=== PATIENT | female | born 1975 | race Caucasian/White ===

== ENCOUNTER 2017-03-31 13:45 | Emergency (ER) | payer BC ==
[2017-03-31 14:42] VITALS: BP 148/100
--- NOTE | 2017-03-31 15:30 | RAD ---
Indication: Left ring finger injury. 4 views of left ring finger demonstrates no fracture. No other bone or joint abnormalities identified. IMPRESSION: No fracture of left ring finger.
--- NOTE | 2017-03-31 15:47 | UC ---
Hand/Wrist HPI - HPI Summary HPI Summary: Pt reports that she dropped a filled with soil on his left 4th finger. Pt has peripheral neuropathy and c/o swelling and throbbing pain - History Of Current Complaint Chief Complaint: UCUpperExtremity Stated Complaint: LEFT RING FINGER INJURY Time Seen by Provider: 03/31/17 14:49 Hx Obtained From: Patient ?: No Onset/Duration: Sudden Onset Severity Initially: Moderate Severity Currently: Moderate Character Of Pain: Dull, Aching, Throbbing, Stiffness Aggravating Factor(s): Movement Alleviating: Rest Associated Signs And Symptoms: Positive: Swelling Related History: Dominant Hand Right, Dominant Hand Left - Risk Factors Compartment Syndrome Risk Factors: Pain - Allergies/Home Medications Allergies/Adverse Reactions: Allergies Allergy/AdvReac Type Severity Reaction Status Date / Time Codeine Allergy Hives, Verified 03/31/17 14:43 pass out Penicillins Allergy Hives Verified 03/31/17 14:43 Sulfa Drugs Allergy Anaphylatic Verified 03/31/17 14:43 Shock PMH/Surg Hx/FS Hx/Imm Hx Previously Healthy: Yes Cancer History: Breast Cancer - Surgical History Surgical History: Yes Surgery Procedure, Year, and Place: HYSTERECTOMY. TONSILECTOMY. JAW. LEFT ARM. GALLBLADDER. BILATERAL MASTECTOMY - Family History Known Family History: Positive: Cardiac Disease - Social History Occupation: Employed Full-time Lives: With Family Alcohol Use: Rare Substance Use Type: Marijuana Smoking Status (MU): Never Smoked Tobacco Have You Smoked in the Last Year: No Review of Systems Constitutional: Negative Skin: Bruising - left 4th finger Eyes: Negative ENT: Negative Respiratory: Negative Cardiovascular: Negative Gastrointestinal: Negative Genitourinary: Negative Motor: Decreased ROM - left 4th finger secondary to pain Neurovascular: Negative Musculoskeletal: Arthralgia - left 4th finger, Myalgia Neurological: Negative Psychological: Negative Is Patient Immunocompromised?: No All Other Systems Reviewed And Are Negative: Yes Physical Exam Triage Information Reviewed: Yes Appearance: Well-Appearing Vital Signs: Initial Vital Signs Temp 97.1 F 03/31/17 14:40 Pulse 68 03/31/17 14:40 Resp 14 03/31/17 14:40 BP 148/100 03/31/17 14:40 Pulse Ox 100 03/31/17 14:40 Vital Signs Reviewed: Yes Eye Exam: Normal ENT Exam: Normal Neck exam: Normal Respiratory Exam: Normal Cardiovascular Exam: Normal Musculoskeletal Exam: Other Musculoskeletal: Positive: ROM Limited @ - left 4th finger secondary to pain, Edema @ - left 4th finger Neurological Exam: Other Neurological: Positive: Other: - preexisting peripheral neuropathy Psychological Exam: Normal Skin Exam: Normal Hand/Wrist Course/Dx - Course Course Of Treatment: Indication: Left ring finger injury. 4 views of left ring finger demonstrates no fracture. No other bone or joint abnormalities. identified. IMPRESSION: No fracture of left ring finger. - Differential Dx/Diagnosis Differential Diagnosis/HQI/PQRI: Contusion, Fracture Provider Diagnoses: left 4th finger contusion, crush injury Discharge - Discharge Plan Condition: Stable Disposition: HOME Patient Education Materials: Crush Injury (ED) Referrals: William Thompson MD [Medical Doctor] - Priscila Hernandez MD [Primary Care Provider] - If Needed Additional Instructions: Please follow up with your PCP or return to clinic. We have provided a referral to an orthopedic provider to follow up with as needed. Indication: Left ring finger injury. 4 views of left ring finger demonstrates no fracture. No other bone or joint abnormalities identified.
== END 2017-03-31 15:44 | disposition home or self-care (01) ==
LOC: UCCORT 13:45
DX: S60.042A Contusion of left ring finger without damage to nail, initial encounter (principal); G62.9 Polyneuropathy, unspecified; F12.90 Cannabis use, unspecified, uncomplicated; W20.8XXA Other cause of strike by thrown, projected or falling object, initial encounter; Z88.5 Allergy status to narcotic agent; Z88.0 Allergy status to penicillin; Z88.2 Allergy status to sulfonamides
CPT/HCPCS: 73140; 99211; G0463

== ENCOUNTER 2019-09-24 07:41 | Emergency (ER) | payer BC ==
--- OUTSIDE RECORDS SUMMARY | 2019-09-24 07:52 | XMS REPORT | Continuity of Care Document ---
:1975 External Reference #:[id number] Author Name Melvin Garner MD Address [address] [place] [address] Care Team Providers Name Role Phone Esdras Raygoza MD - Ophthalmic Care Team Information Under Water Assistant Melvin Garner MD - Internal Care Team Information Under Water Assistant Medicine Problems Active Problems Provider Date Chronic cholecystitis Earl Perez MD Onset: 02/02/2014 Fracture Mandible Body Closed Other & Aidan Sandoval, Onset: 02/18 Unspecified Gwyn Temporomandibular joint disorder Aidan Sandoval, Onset: 02/26/2014 Gwyn Malignant neoplasm of female breast Jennifer Prescott DO Onset: 03/02/2015 Generalized anxiety disorder Jennifer Prescott DO Onset: 04/27/2015 Female stress incontinence Bee Moseley M.D. Onset: 05/24/2017 Constipation Priscila Hernandez MD Onset: 09/12/2017 Hyperlipidemia Priscila Hernandez MD Onset: 09/12/2017 Joint pain Priscila Hernandez MD Onset: 09/12/2017 Arthralgia of the upper arm Waldo Boone M.D. Onset: 11/27/2017 Difficulty breathing Waldo Boone M.D. Onset: 11/27/2017 Eustachian tube salpingitis Waldo Boone M.D. Onset: 11/27/2017 Social History Type Date Description Comments Sex Unknown Tobacco Use Start: Unknown Never Smoked Cigarettes ETOH Use Denies alcohol use Recreational Drug Use Formerly used Marijuana sporadically Tobacco Use Start: Unknown End: Patient is a former smoker Smoking Status Reviewed: 09/16/19 Patient is a former smoker Allergies, Adverse Reactions, Alerts Active Allergies Reaction Severity Comments Date Codeine Upset Stomach 09/02/2009 Penicillin 09/02/2009 Sulfa Drugs 09/22/2013 Morphine Rash (Unsure) 05/18/2015 Gabapentin extreme fatigue. 04/29/2018 Medications Active Medications SIG Qnty Indications Ordering Date Provider Ergocalciferol take one a week 12caps E55.9 Priscila Hernandez, 11/04/2018 [id number] MD Capsules Custom Breast The above Patient 1units Gagen, 04/29/2018 Prosthetics will need custom MS Kelly, bilateral breast ZANJERO-C, CNM prosthetics Cymbalta 2 caps at bedtime Unknown 30mg Caps DR Lesly Ramirez 1 by mouth every Unknown 3mg Tablets day History Medications Cymbalta 1 po bid 180caps F41.1 Priscila Hernandez MD 03/28/2019 - 09/16/[address] Grace Medications Administered in Office Medication SIG Qnty Indications Ordering Provider Date Betamethasone Acetate & Renee Rojo, [facility] 12/06/2017 Sodium Phosphate 3 MG Of Each Injection Betamethasone Acetate & Renee Rojo, [facility] 12/06/2017 Sodium Phosphate 3 MG Of Each Injection Depomedrol 40mg/1cc Renee Rojo, [facility] 09/22/2013 (methylprednisolone acetate) Injection Immunizations CPT Code Status Date Vaccine Lot # [id number] Given 12/20/2016 Pneumovax Injection [id number] Given 12/20/2016 Tdap injection [id number] Vital Signs Date Vital Result Comment 09/16/2019 2:41pm BP Systolic 148 mmHg BP Diastolic 92 mmHg Body Temperature 97.0 F Heart Rate 58 /min Respiratory Rate 16 /min Height 62.5 inches 5'2.50" Weight 193.00 lb BMI (Body Mass Index) 34.7 kg/m2 BSA (Body Surface Area) 1.89 m2 [place] body weight in kilograms 51 kg O2 % BldC Oximetry 100 % 03/28/2019 8:18am BP Systolic Sitting Left Arm 122 mmHg BP Diastolic Sitting Left Arm 74 mmHg Body Temperature 97.6 F Heart Rate 70 /min Respiratory Rate 18 /min Weight 177.00 lb O2 % BldC Oximetry 99 % Results Description No Information Available Procedures Date Code Description Status 01/15/2018 [id number] Colonoscopy Completed 07/16/2016 [id number] Bone Mineral Density Test Completed 02/24/2015 [id number] Mammogram Completed 10/30/2013 [id number] Mammogram Completed 05/12/2013 [id number] Mammogram Completed Medical Devices Description No Information Available Encounters Type Date Location Provider Dx Diagnosis Office Visit 09/16/2019 [facility], C50.919 Malignant neoplasm 3:00p [facility] female breast F32.9 Major depressive disorder, single episode, unspecified M15.9 Polyosteoarthritis, unspecified K58.1 Irritable bowel syndrome with constipation Z68.34 Body mass index (BMI) 34.0-34.9, adult Office Visit 03/28/2019 8:30a [facility] K59.00 Constipation, Office HARVEY Huang unspecified F41.1 Generalized anxiety disorder M54.12 Radiculopathy, cervical region Assessments Date Code Description Provider 09/16/2019 C50.919 Malignant neoplasm of unspecified site Melvin Garner MD of unspecified female 09/16/2019 F32.9 Major depressive disorder, single Melvin Garner MD episode, unspecified 09/16/2019 M15.9 Polyosteoarthritis, unspecified Melvin Garner MD 09/16/2019 K58.1 Irritable bowel syndrome with Melvin Garner MD constipation 09/16/2019 Z68.34 Body mass index (BMI) 34.0-34.9, adult Melvin Garner MD 03/28/2019 K59.00 Constipation, unspecified Geeta Lewis PA 03/28/2019 F41.1 Generalized anxiety disorder Geeta Lewis PA 03/28/2019 M54.12 Radiculopathy, cervical region Geeta Lewis PA Plan of Treatment Future Appointment(s):09/18/2019 8:15 am - Maintenance Worker Municipal at [facility] Ucgutt0110/14 3:00 pm - Melvin Garner MD at [facility] Vhrmrd5109/16/2019 - Melvin Garner, MDC50.919 Malignant neoplasm of unspecified site of unspecified femaleNew Labs:Comprehensive Metabolic Panel, Scheduled: CBC W/Automated Diff, Scheduled: 09/18/19New Orders:ECHO Limited, Ordered: 10/02F32.9 Major depressive disorder, single episode, unspecifiedNew Labs: Vitamin D,25-Hydroxy, Scheduled: 09/18/19M15.9 Polyosteoarthritis, unspecifiedReferral:Earl Garcia MD, WdshuqtuqshsQ39.1 Irritable bowel syndrome with muhysnudvczmS39.34 Body mass index (BMI) 34.0-34.9, adultNew Labs: LDL Cholesterol Profile, Scheduled: 09/18/19Glycohemoglobin A1c, Scheduled: 12/02TSH Reflex FT4 And/Or FT3, Scheduled: 09/18/19AllFollow up:ECHO labs prior to visit f/u 4 weeks Functional Status Description No Information Available Mental Status Description No Information Available Referrals Refer to Dr Reason for Referral Status Appt Date Earl Garcia MD hx of breast cancer follows with allie Created , complaining of multiple joint pain, muscle pain, saw an shellacker as well, has keratoconjunctivitis, possible fibromyalgia vs. sicca syndrome vs mixed connective tissue disease, please evaluate thanks. [address] [place] [address] [place] [address] [phone]
--- OUTSIDE RECORDS SUMMARY | 2019-09-24 07:52 | XMS REPORT | Continuity of Care Document ---
:1975 External Reference #:[id number] Author Name Priscila Hernandez MD (transmitted by agent of provider Melvin Garner ) Address [address] [place] [address] Care Team Providers Name Role Phone Priscila Hernandez MD - Internal Medicine Care Team Information Silver Miner [phone] Esdras Raygoza MD - Ophthalmic Care Team Information Silver Miner Problems Active Problems Provider Date Chronic cholecystitis [...] is a former smoker Smoking Status Reviewed: 03/28/19 Patient is a former smoker Allergies, Adverse Reactions, Alerts Active Allergies Reaction Severity Comments Date Codeine Upset Stomach 09/02/2009 Penicillin 09/02/2009 Sulfa Drugs 09/22/2013 Morphine Rash (Unsure) 05/18/2015 Gabapentin extreme fatigue. 04/29/2018 Medications Active Medications SIG Qnty Indications Ordering Date Provider Cymbalta 1 po bid 180caps F41.1 David, Priscila, 03/28/[address] KENDRICK Part Ergocalciferol take one a week 12caps E55.9 David, Priscila, 11/04/2018 [id number] Capsules Gas Relief Take one every 8 90units R14.0 David, Priscila, 11/04/2018 80mg hours as needed Chewtabs for flautus Custom Breast The above Patient 1units Gagen, 04/29/2018 Prosthetics will need custom Kelly, MS, bilateral breast PRODUCTION SUPERVISOR TRAINEE-C, CNM prosthetics Alpha Lipoic Acid 1 caps by mouth Unknown Extra Strength every day 600mg Capsules Linzess 1 po daily K59.00 Unknown 145mcg Capsules Medications Administered in Office Medication SIG Qnty Indications Ordering Provider Date Betamethasone Acetate & Reene Rojo [facility] 12/06/2017 Sodium Phosphate 3 MG Of Each Injection Betamethasone Acetate & Renee Rojo, [facility] 12/06/2017 Sodium Phosphate 3 MG Of Each Injection Depomedrol 40mg/1cc Renee Rojo, [facility] 09/22/2013 (methylprednisolone acetate) Injection Immunizations CPT Code Status Date Vaccine Lot # [id number] Given 12/20/2016 Pneumovax Injection [id number] Given 12/20/2016 Tdap injection [id number] Vital Signs Date Vital Result Comment 03/28/2019 8:18am BP Systolic Sitting Left Arm 122 mmHg BP Diastolic Sitting Left Arm 74 mmHg Body Temperature 97.6 F Heart Rate 70 /min Respiratory Rate 18 /min Weight 177.00 lb O2 % BldC Oximetry 99 % 12/02/2018 11:17am BP Systolic Sitting Right Arm 92 mmHg BP Diastolic Sitting Right Arm 60 mmHg Body Temperature 98.2 F Heart Rate 65 /min Respiratory Rate 18 /min Height 62.5 inches 5'2.50" Weight 182.00 lb BMI (Body Mass Index) 32.8 kg/m2 BSA (Body Surface Area) 1.85 m2 [place] body weight in kilograms 51 kg O2 % BldC Oximetry 97 % ra Results Description No Information Available Procedures Date Code Description Status 01/15/2018 [id number] Colonoscopy Completed 07/16/2016 [id number] Bone Mineral Density Test Completed 02/24/2015 [id number] Mammogram Completed 10/30/2013 [id number] Mammogram Completed 05/12/2013 [id number] Mammogram Completed Medical Devices Description No Information Available Encounters Type Date Location Provider Dx Diagnosis Office Visit 03/28/2019 [facility] K59.00 Constipation, 8:30a Office HARVEY Huang unspecified F41.1 Generalized anxiety disorder M54.12 Radiculopathy, cervical region Assessments Date Code Description Provider 09/16/2019 C50.919 Malignant neoplasm of unspecified site Melvin Garner MD of unspecified female 03/28/2019 K59.00 Constipation, unspecified Geeta Lewis PA 03/28/2019 F41.1 Generalized anxiety disorder Geeta Lewis PA 03/28/2019 M54.12 Radiculopathy, cervical region Geeta Lewis PA Plan of Treatment 09/16/2019 - Melvin Garner MDC50.919 Malignant neoplasm of unspecified site of unspecified femaleAllFollow up:f/u with tika stephens in 6 months Functional Status Description No Information Available Mental Status Description No Information Available Referrals Description No Information Available
--- OUTSIDE RECORDS SUMMARY | 2019-09-24 07:52 | XMS REPORT | Continuity of Care Document ---
:1975 External Reference #:[id number] Author Name Hydrometallurgical Engineer (transmitted by agent of provider Soniya Aggarwal) Address [address] [place] [address] Care Team Providers Name Role Phone Esdras Raygoza MD - Ophthalmic Care Team Information Litigation Services Manager Melvin Garner MD - Internal Care Team Information Litigation Services Manager [phone] Medicine Earl Garcia MD - Rheumatology Care Team Information Litigation Services Manager Problems Active Problems Provider Date Chronic cholecystitis [...] a week 12caps E55.9 Priscila Hernandez, 11/04/2018 [id number] MD Capsules Custom Breast The above Patient 1units Gagen, 04/29/2018 Prosthetics will need custom Kelly, MS, bilateral breast GRAVEL WHEELER-C, CNM prosthetics Cymbalta 2 caps at bedtime Unknown 30mg Caps DR Grace Trulance 1 by mouth every Unknown 3mg Tablets day History Medications Cymbalta 1 po bid 180caps F41.1 Priscila Hernandez MD 03/28/2019 - 09/16/[address] Grace Medications Administered in Office Medication SIG Qnty Indications Ordering Provider Date [facility] 12/06/2017 Sodium Phosphate 3 MG Of Each Injection Betamethasone Acetate & Renee Rojo, [facility] 12/06/2017 Sodium Phosphate 3 MG Of Each Injection Depomedrol 40mg/1cc Renee Rojo, [facility] 09/22/2013 (methylprednisolone acetate) Injection Immunizations CPT Code Status Date Vaccine Lot # [id number] Given 12/20/2016 Pneumovax Injection [id number] Given 12/20/2016 Tdap injection [id number] Vital Signs Date Vital Result Comment 09/16/2019 2:41pm BP Systolic 148 mmHg BP Diastolic 92 mmHg Body Temperature 97.0 F Heart Rate 58 /min Respiratory Rate 16 /min Height 62.5 inches 5'2.50" Weight 193.00 lb BMI (Body Mass Index) 34.7 kg/m2 BSA (Body Surface Area) 1.89 m2 [place] body weight in kilograms 51 kg O2 % BldC Oximetry 100 % 03/28/2019 8:18am BP Systolic Sitting Left Arm 122 mmHg BP Diastolic Sitting Left Arm 74 mmHg Body Temperature 97.6 F Heart Rate 70 /min Respiratory Rate 18 /min Weight 177.00 lb O2 % BldC Oximetry 99 % Results Test Acquired Date Facility Test Result H/L Range Note Laboratory test 09/18/2019 [facility] Glycohemoglobin A1c <pending> finding [address] [place] [address] [phone] Vitamin D,25-Hydroxy <pending> TSH Reflex FT4 And/Or FT3 <pending> Procedures Date Code Description Status 01/15/2018 [id number] Colonoscopy Completed 07/16/2016 [id number] Bone Mineral Density Test Completed 02/24/2015 [id number] Mammogram Completed 10/30/2013 [id number] Mammogram Completed 05/12/2013 [id number] Mammogram Completed Medical Devices Description No Information Available Encounters Type Date Location Provider Dx Diagnosis Office Visit 09/16/2019 [facility], C50.919 Malignant neoplasm 3:00p Office MD Melvin of [facility] site of unspecified female breast F32.9 Major depressive disorder, single episode, unspecified M15.9 Polyosteoarthritis, unspecified K58.1 Irritable bowel syndrome with constipation Z68.34 Body mass index (BMI) 34.0-34.9, adult Office Visit 03/28/2019 8:30a [facility], K59.00 Constipation, Office HARVEY Huang unspecified F41.1 Generalized anxiety disorder M54.12 Radiculopathy, cervical region Assessments Date Code Description Provider 09/16/2019 C50.919 Malignant neoplasm of unspecified site Melvin Garner MD of unspecified female 09/16/2019 F32.9 Major depressive disorder, single Melvin Garenr MD episode, unspecified 09/16/2019 M15.9 Polyosteoarthritis, unspecified Melvin Garner MD 09/16/2019 K58.1 Irritable bowel syndrome with Melvin Garner MD constipation 09/16/2019 Z68.34 Body mass index (BMI) 34.0-34.9, adult Melvin Garner MD 03/28/2019 K59.00 Constipation, unspecified Geeta Lewis PA 03/28/2019 F41.1 Generalized anxiety disorder Geeta Lewis PA 03/28/2019 M54.12 Radiculopathy, cervical region Geeta Lewis PA Plan of Treatment Future Appointment(s):10/15/2019 3:00 pm - Melvin Garner MD at Primary Care Xghofe1909/16/2019 - Melvin Garner, MDC50.919 Malignant neoplasm of unspecified site of unspecified ougebnF13.9 Major depressive disorder, single episode, doiqknsywzzT08.9 Polyosteoarthritis, unspecifiedReferral:Earl Garcia MD, JerlcssmmtdpY74.1 Irritable bowel syndrome with gafdqmehmrqtN47.34 Body mass index (BMI) 34.0-34.9, adultAllFollow up:ECHO labs prior to visit f/u 4 weeks Functional Status Description No Information Available Mental Status Description No Information Available Referrals Refer to Dr Reason for Referral Status Appt Date Earl Garcia MD hx of breast cancer follows with allie Created , complaining of multiple joint pain, muscle pain, saw an munitions factory worker as well, has keratoconjunctivitis, possible fibromyalgia vs. sicca syndrome vs mixed connective tissue disease, please evaluate thanks. Faxed records 09/17/[address] [place] [address] [place] [address] [phone]
--- OUTSIDE RECORDS SUMMARY | 2019-09-24 07:52 | XMS REPORT | Continuity of Care Document ---
:1975 External Reference #:[id number] Author Name Melvin Garner MD (transmitted by agent of provider Kenya Partida) Address [address] [place] [address] Care Team Providers Name Role Phone Esdras Raygoza MD - Ophthalmic Care Team Information Lead Clinical Research Coordinator Melvin Garner MD - Internal Care Team Information Lead Clinical Research Coordinator [phone] Medicine Problems Active Problems Provider Date Chronic cholecystitis Earl Perez MD Onset: 02/02/2014 Fracture Mandible Body Closed Other & Aidan Sandoval, Onset: 02/18 Unspecified Gwyn Temporomandibular joint disorder Aidan Sandoval, Onset: 02/26/2014 Gwyn Malignant neoplasm of female breast Jennifre Prescott DO Onset: 03/02/2015 Generalized anxiety disorder [...] a week 12caps E55.9 Priscila Hernandez, 11/04/2018 [id number] MD Capsules Custom Breast The above Patient 1unole Ledezma, 04/29/2018 Prosthetics will need custom Kelly, MS, bilateral breast HEEL ATTACHER-C, CNM prosthetics Cymbalta 2 caps at bedtime Unknown 30mg Caps DR Lesly Frairencvick 1 by mouth every Unknown 3mg Tablets day History Medications Cymbalta 1 po bid 180caps F41.1 Priscila Hernandez MD 03/28/2019 - 09/16/[address] Grace Medications Administered in Office Medication SIG Qnty Indications Ordering Provider Date Betamethasone Acetate & Renee Rojo [facility] 12/06/2017 Sodium Phosphate 3 MG Of Each Injection Betamethasone Acetate & Renee Rojo, [facility] 12/06/2017 Sodium Phosphate 3 MG Of Each Injection Depomedrol 40mg/1cc Renee Rojo, [facility] 09/22/2013 (methylprednisolone acetate) Injection Immunizations CPT Code Status Date Vaccine Lot # [id number] Given 12/20/2016 Pneumovax Injection [id number] Given 12/20/2016 Tdap injection [id number] Vital Signs Date Vital Result Comment 09/16/2019 2:41pm BP Systolic 148 mmHg BP Diastolic 92 mmHg Body Temperature 97.0 F Heart Rate 58 /min Respiratory Rate 16 /min Height 62.5 inches 5'2.50" Weight 193.00 lb BMI (Body Mass Index) 34.7 kg/m2 BSA (Body Surface Area) 1.89 m2 [place] body weight in kilograms 51 kg O2 % BldC Oximetry 100 % 03/28/2019 8:18am BP Systolic Sitting Left Arm 122 mmHg BP Diastolic Sitting Left Arm 74 mmHg Body Temperature 97.6 F Heart Rate 70 /min Respiratory Rate 18 /min Weight 177.00 lb O2 % BldC Oximetry 99 % Results Description No Information Available Procedures Date Code Description Status 01/15/2018 [id number] Colonoscopy Completed 07/16/2016 [id number] Bone Mineral Density Test Completed 02/24/2015 [id number] Mammogram Completed 10/30/2013 [id number] Mammogram Completed 05/12/2013 [id number] Mammogram Completed Medical Devices Description No Information Available Encounters Type Date Location Provider Dx Diagnosis Office Visit 09/16/2019 [facility] C50.919 Malignant neoplasm 3:00p Office MD Melvin of unsp site of unspecified female breast F32.9 Major depressive disorder, single episode, unspecified M15.9 Polyosteoarthritis, unspecified K58.1 Irritable bowel syndrome with constipation Z68.34 Body mass index (BMI) 34.0-34.9, adult Office Visit 03/28/2019 8:30a [facility] K59.00 Constipation, Office Geeta Pope PA unspecified F41.1 Generalized anxiety disorder M54.12 Radiculopathy, [...] Lewis PA 03/28/2019 M54.12 Radiculopathy, cervical region Comp[place] Geeta H., PA Plan of Treatment Future Appointment(s):09/18/2019 8:15 am - Agricultural Real Estate Agent at Primary Care Mgaeno3610/14 3:00 pm - Melvin Garner MD at Primary Care Epawkh6709/16/2019 - Melvin Garner, MDC50.919 Malignant neoplasm of unspecified site of unspecified femaleNew Labs:Comprehensive Metabolic Panel, Scheduled: CBC W/Automated Diff, Scheduled: 09/18/19New Orders:ECHO Limited, Ordered: 10/02F32.9 Major depressive disorder, single episode, unspecifiedNew Labs: Vitamin D,25-Hydroxy, Scheduled: 09/18/19M15.9 Polyosteoarthritis, unspecifiedReferral:Earl Garcia MD, LxykeotmmiqzM68.1 Irritable bowel syndrome with mrirjcvylsqqD01.34 Body mass index (BMI) 34.0-34.9, adultNew Labs: LDL Cholesterol Profile, Scheduled: 09/18/19Glycohemoglobin A1c, Scheduled: 12/02TSH Reflex FT4 And/Or FT3, Scheduled: 09/18/19AllFollow up:ECHO labs prior to visit f/u 4 weeks Functional Status Description No Information Available Mental Status Description No Information Available Referrals Refer to Reason for Referral Status Appt Date Earl Garcia MD hx of breast cancer follows with yunieruga Created / 0000 , complaining of multiple joint pain, muscle pain, saw an dental technology advisor as well, has keratoconjunctivitis, possible fibromyalgia vs. sicca syndrome vs mixed connective tissue disease, please evaluate thanks. [address] [facility] [place] [address] [place] [address] [phone]
--- OUTSIDE RECORDS SUMMARY | 2019-09-24 07:52 | XMS REPORT | Continuity of Care Document ---
:1975 External Reference #:[id number] Author Name Bar Steward (transmitted by agent of provider Kenya Partida) Address [address] [place] [address] Care Team Providers Name Role Phone Esdras Raygoza MD - Ophthalmic Care Team Information [employer] Manager Melvin Garner MD - Internal Care Team Information [employer] Manager Medicine Earl Garcia MD - Rheumatology Care Team Information [employer] Manager Problems Active Problems Provider Date Chronic [...] a week 12caps E55.9 Priscila Hernandez, 11/04/2018 [id number] MD Capsules Custom Breast The above Patient 1units Gagjere, 04/29/2018 Prosthetics will need custom [place], [place], bilateral breast [employer], CNM prosthetics Cymbalta 2 caps at bedtime Unknown 30mg Caps DR Grace Trjoannce 1 by mouth every Unknown 3mg Tablets day History Medications Cymbalta 1 po bid 180caps F41.1 Priscila Hernandez MD 03/28/2019 - 09/16/[address] Grace Medications Administered in Office Medication SIG Qnty Indications Ordering Provider Date Bet[facility]2017 Sodium Phosphate 3 MG Of Each Injection Betamethasone Acetate & Renee Rojo, [facility] 12/06/2017 Sodium Phosphate 3 MG Of Each Injection Depomedrol 40mg/1cc Renee Rojo, [facility] 09/22/2013 (methylprednisolone acetate) Injection Immunizations CPT Code Status Date Vaccine Lot # [id number] Given 12/20/2016 Pneumovax Injection [id number] Given 12/20/2016 Tdap injection [id number] Vital Signs Date Vital Result Comment 09/16/2019 2:41pm BP Systolic 148 mmHg BP Diastolic 92 mmHg Body Temperature 97.0 F Heart Rate 58 /min Respiratory Rate 16 /min Height 62.5 inches 5'2.50" Weight 193.00 lb BMI (Body Mass Index) 34.7 kg/m2 BSA (Body Surface Area) 1.89 m2 Superior body weight in kilograms 51 kg O2 % BldC Oximetry 100 % 03/28/2019 8:18am BP Systolic Sitting Left Arm 122 mmHg BP Diastolic Sitting Left Arm 74 mmHg Body Temperature 97.6 F Heart Rate 70 /min Respiratory Rate 18 /min Weight 177.00 lb O2 % BldC Oximetry 99 % Results Test Acquired Date Facility Test Result H/L Range Note Comprehensive 09/18/2019 [facility] Glucose 148 mg/dL High 74-106 1 Metabolic Panel [address] [place] [address] [phone] BUN 12 mg/dL Normal 7-18 Creatinine 0.8 mg/dL Normal 0.6-1.3 Glom Filtration Rate, Estimate >60 mL/min >60 If >60 mL/min >60 2 BUN/Creat 15.0 ratio Sodium 140 mmol/L Normal 136-145 Potassium 4.6 mmol/L Normal 3.5-5.1 Chloride 109 mmol/L High 98-107 Carbon Dioxide 26 mmol/L Normal 21-32 Anion Gap 5 mEq/L Low 8-16 Calcium 9.0 mg/dL Normal 8.5-10.1 Total Protein 6.9 g/dL Normal 6.4-8.2 Albumin 3.8 g/dL Normal 3.4-5.0 Globulin 3.1 g/dL Normal 1.9-4.3 Alb/Glob 1.2 ratio Bilirubin,Total 0.2 mg/dL Normal 0.2-1.0 3 Sgot/Ast 19 U/L Normal 15-37 SGPT/Alt 57 U/L Normal 12-78 Alkaline Phosphatase 68 U/L Normal 45-117 Reflex add FT3? <Blank> Reflex add FT4? <Blank> CBC W/Automated 09/18/2019 [facility] White Blood 5.9 K/uL Normal 3.1-10.[address] [place] [address] [phone] Red Blood Count 4.95 M/uL Normal 3.90-5.40 Hemoglobin 14.8 gm/dL Normal 11.6-15.8 Hematocrit 44.5 % Normal 36.0-46.1 Mean Cell Volume 89.9 fl Normal 80.9-99.0 Mean Corpuscular HGB 29.9 pg Normal 25.9-32.7 Mean Corpuscular HGB Conc 33.3 g/dL Normal 30.8-34.3 Platelet Count 329 K/uL Normal 155-360 Red Cell Distri Width SD 40.8 fl Normal 36-47 Red Cell Distri Width %CV 12.4 % Normal 11.7-14.4 Mean Platelet Volume 10.0 fl Normal 8.9-12.4 Neut% 51.2 % Normal 40.4-72.8 Lymph % 39.6 % Normal 20.0-42.0 [place] % 6.1 % Normal 4.3-13.2 Eo% 2.4 % Normal 0.0-6.6 Bas% 0.5 % Normal 0.0-1.1 Immature Grans 0.2 % Normal 0.0-5.0 NRBC % 0.0 /100WBC < 10/ 100 WBC Neut# 3.00 K/uL Normal 1.8-7.0 Lymph # 2.32 K/uL Normal 1.0-4.0 [place] # 0.36 K/uL Normal 0.3-0.9 Eos # 0.14 K/uL Normal 0.0-0.5 Baso # 0.03 K/uL Normal 0.0-0.1 Immature Grans Absolute 0.01 K/uL NRBC # 0.00 K/uL LDL Cholesterol 09/18/2019 [facility] Cholesterol 249 mg/dL High <200 [address] [place] [address] [phone] Triglycerides 213 mg/dL High <150 5 HDL Cholesterol 46 mg/dL >40 6 LDL-Cholesterol 160 mg/dL < 100 7 Reflex add FT3? <Blank> Reflex add FT4? <Blank> Glycohemoglobin 09/18/2019 [facility] Glycohemoglobin 5.8 % Normal 4.2-6.[address] (A1c) [place] [address] [phone] eAG 120 mg/dL Laboratory test 09/18/2019 [facility] Vitamin <pending> finding [address] D,25[place] [address] [phone] TSH Reflex FT4 09/18/2019 [facility] Thyroid Stim 1.55 uIU/mL Normal 0.30 And/Or FT3 [address] Hormone -4.2 [place] [address] 0 [phone] Reflex add FT3? <Blank> Reflex add FT4? <Blank> 1 F32.0,C50.919,Z68.34 2 Note: Persistent reduction for 3 months or more in an eGFR <60 mL/min/1.73 m2 defines CKD. Patients with eGFR values >/=60 mL/min/1.73 m2 may also have CKD if evidence of persistent proteinuria is present. The original MDRD equation for estimated GFR is not valid for patients less than 18 years of age. Additional information may be found at www.kdoqi.org. 3 Please Note: Patients undergoing treatment with eltrombopag may have falsely elevated results with this assay method. 4 Reference Guidelines*: Desirable: ........... < 200 mg/dL Borderline High: ..... 200-239 mg/dL High: ................ >= 240 mg/dL * The National Cholesterol Education Program (NCEP) 5 Reference Guidelines*: Normal: ............. < 150 mg/dL Borderline High: .... 150-199 mg/dL High: ............... 200-499 mg/dL Very High: .......... > 500 mg/dL * Source: National Cholesterol Education Program (NCEP) 6 Reference Guidelines*: Low HDL: ..... < 40 mg/dL Normal: ..... 40-60 mg/dL Desirable: ... > 60 mg/dL *The National Cholesterol Education Program(NCEP) 7 Reference Guidelines*: Optimal:........... <100 mg/dL Near Optimal....... 100-129 mg/dL Borderline High.... 130-159 mg/dL High............... 160-189 mg/dL Very High.......... >=190 mg/dL * Source: National Cholesterol Education Program (NCEP) 8 Elevated levels of HbA1c suggest the need for more aggressive treatment of glycemia. The [place] [employer] recommends that a primary goal of therapy should be a HbA1c of <7% and that physicians should re-evaluate the treatment regimen in patients with HbA1c values consistently >8%. Procedures Date Code Description Status 01/15/2018 06802341 Colonoscopy Completed 07/16/2016 [id number] Bone Mineral Density Test Completed 02/24/2015 [id number] Mammogram Completed 10/30/2013 [id number] Mammogram Completed 05/12/2013 [id number] Mammogram Completed Medical Devices Description No Information [...] cervical region Assessments Date Code Description Provider 09/18/2019 F32.0 Major depressive disorder, single Melvin Garner MD episode, mild 09/18/2019 F32.0 Major depressive disorder, single Bar Steward episode, mild 09/18/2019 C50.919 Malignant neoplasm of unspecified site Melvin Garner MD of unspecified female breast 09/18/2019 C50.919 Malignant neoplasm of unspecified site Bar Steward of unspecified female breast 09/18/2019 Z68.34 Body mass index (BMI) 34.0-34.9, adult Melvin Garner MD 09/18/2019 Z68.34 Body mass index (BMI) 34.0-34.9, adult Bar Steward 09/16/2019 C50.919 Malignant neoplasm of unspecified site [...] - Melvin Garner MD at [facility] [id number]/16/2019 - Melvin Garner, MDC50.919 Malignant neoplasm of unspecified site of unspecified htosutG99.9 Major depressive disorder, single episode, kgwmnqlvboqN97.9 Polyosteoarthritis, unspecifiedReferral:Earl Garcia MD, TbavzxnqscfsG63.1 Irritable bowel syndrome with ltpfipsbdzrpK49.34 Body mass index (BMI) 34.0-34.9, adultAllFollow up:ECHO labs prior to visit f/u 4 weeks Functional Status Description No Information Available Mental Status Description No Information Available Referrals Refer to Reason for Referral Status Appt Date Earl Garcia MD hx of breast cancer follows with [facility] / , complaining of multiple joint pain, muscle pain, saw an parlor chaperone as well, has keratoconjunctivitis, possible fibromyalgia vs. sicca syndrome vs mixed connective tissue disease, please evaluate thanks. Faxed records 09/17/19 [address] [facility] [place] [address] [place] [address] [phone]
[2019-09-24 07:57] VITALS: BP 131/96
--- NOTE | 2019-09-24 08:51 | UC ---
Throat Pain/Nasal Andrew HPI - HPI Summary HPI Summary: 44 yo woman, generally well, with 5 day hx of sore throat and dysphagia, without fever of chills. No headache. Some occasional sputum production. Has tried ibuprofen x 1 only, but is warm water and salt gargling daily. - History of Current Complaint Chief Complaint: UCRespiratory Stated Complaint: SORE THROAT COUGH Time Seen by Provider: 09/24/19 08:44 Hx Obtained From: Patient Onset/Duration: Gradual Onset, Lasting Days Severity: Mild Pain Intensity: 2 Cough: Sputum Appears - dark Associated Signs & Symptoms: Positive: Dysphagia. Negative: Wheezing, Fever - Epiglottits Risk Factors Epiglottis Risk Factors: Negative - Allergies/Home Medications Allergies/Adverse Reactions: Allergies Allergy/AdvReac Type Severity Reaction Status Date / Time codeine Allergy Hives Verified 09/24/19 07:53 Penicillins Allergy Hives Verified 09/24/19 07:53 Sulfa (Sulfonamide Allergy Anaphylatic Verified 09/24/19 07:53 Antibiotics) Shock Home Medications: Home Medications DULoxetine DR CAP* [Cymbalta CAP*] 60 mg PO QPM 08/13/15 [History Confirmed 06/04] Ibuprofen TAB* [Advil TAB*] 400 mg PO Q6H PRN 09/24/19 [History Confirmed ] Plecanatide [Trulance] 3 mg PO DAILY 09/24/19 [History Confirmed 09/24/19] PMH/Surg Hx/FS Hx/Imm Hx Previously Healthy: Yes GI/ History: Other - chronic constipation - Surgical History Surgical History: Yes Surgery Procedure, Year, and Place: HYSTERECTOMY. TONSILECTOMY. JAW. LEFT ARM. GALLBLADDER. 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 Lives: With Family Alcohol Use: Rare Substance Use Type: Marijuana Substance Use Comment - Amount & Last Used: Occasionally Smoking Status (MU): Never Smoked Tobacco Have You Smoked in the Last Year: No Review of Systems All Other Systems Reviewed And Are Negative: Yes Constitutional: Positive: Fatigue Skin: Positive: Negative Eyes: Positive: Negative ENT: Positive: Sore Throat Respiratory: Positive: Negative Cardiovascular: Positive: Negative Gastrointestinal: Positive: Negative Genitourinary: Positive: Negative Motor: Positive: Negative Neurovascular: Positive: Negative Musculoskeletal: Positive: Negative Neurological/Mental Status: Positive: Negative Psychological: Positive: Negative Is Patient Immunocompromised?: No Physical Exam Triage Information Reviewed: Yes Appearance: Well-Appearing, No Pain Distress Vital Signs: Initial Vital Signs Temp 98.2 F 09/24/19 07:50 Pulse 70 09/24/19 07:50 Resp 16 09/24/19 07:50 BP 131/96 09/24/19 07:50 Pulse Ox 100 09/24/19 07:50 ENT: Positive: Pharyngeal erythema. Negative: Tonsillar swelling - past tonsillectomy Dental Exam: Normal Neck: Positive: Supple, Nontender, Enlarged Nodes @ - mild swelling of right tonsillar node Respiratory: Positive: Lungs clear, Normal breath sounds Cardiovascular: Positive: RRR, No Murmur Diagnostics - Laboratory Lab Results: rapid strep negative. Throat Pain/Nasal Course/Dx - Course Course Of Treatment: continue symptomatic treatment - Differential Dx/Diagnosis Differential Diagnosis/HQI/PQRI: Laryngitis, Pharyngitis, Tonsillitis Provider Diagnosis: Pharyngitis Discharge ED - Sign-Out/Discharge Documenting (check all that apply): Patient Departure All imaging exams completed and their final reports reviewed: No Studies - Discharge Plan Condition: Stable Disposition: HOME Patient Education Materials: Pharyngitis (ED) Referrals: Melvin Garner MD [Primary Care Provider] - Additional Instructions: Continue symptomatic treatment, with continued salt water gargling. follow up if you develop fever, cough or if symptoms persist. - Billing Disposition and Condition Condition: STABLE Disposition: Home
== END 2019-09-24 09:11 | disposition home or self-care (01) ==
LOC: UCCORT 07:41
DX: J02.9 Acute pharyngitis, unspecified (principal); K59.09 Other constipation; R53.83 Other fatigue; Z88.0 Allergy status to penicillin; Z88.2 Allergy status to sulfonamides; Z88.5 Allergy status to narcotic agent; Z79.899 Other long term (current) drug therapy
CPT/HCPCS: 87651; 99211; G0463